=== PATIENT | female | born 1980 | race Caucasian/White ===

== ENCOUNTER 2018-06-04 20:25 | Emergency (ER) | payer BC ==
[~2018-06-04] VITALS: Ht 162.6 cm; Wt 65.8 kg
--- NOTE | 2018-06-04 21:48 | Diagnostic Imaging Report ---
EXAMINATION: CHEST 2 VIEWS INDICATION: coughing, rule out infection COMPARISON: Chest x-ray 06/30/2011 FINDINGS: PA and lateral views TUBES and LINES: None. LUNGS: Lungs are well inflated. Lungs are clear. There is no evidence of pneumonia or pulmonary edema. PLEURA: No pleural effusion or pneumothorax. HEART AND MEDIASTINUM: The cardiomediastinal silhouette is unremarkable. BONES AND SOFT TISSUES: No acute osseous lesion. Soft tissues are unremarkable. UPPER ABDOMEN: No free air under the diaphragm. IMPRESSION: No acute thoracic abnormality. Signed by: DR. Primo Min MD on 06/04/2018 9:45 PM
[2018-06-04] MEDS ORDERED: TESSALON PERLE100 MG PO (22:19)
[2018-06-04 22:29] VITALS: BP 150/89
== END 2018-06-04 22:31 | disposition home or self-care (01) ==
LOC: ER 20:25
DX: R05 Cough (principal); J20.9 Acute bronchitis, unspecified; J06.9 Acute upper respiratory infection, unspecified; J00 Acute nasopharyngitis [common cold]
CPT/HCPCS: 71046; 99283

== ENCOUNTER 2021-02-08 07:52 | Emergency (ER) | payer BC ==
[~2021-02-08] VITALS: Ht 162.6 cm; Wt 65.8 kg
[~2021-02-08 07:52] MED LIST: TESSALON PERLE100 MG PO
[2021-02-08 08:21] LABS: BASOPHILS % 0.4 % (0.0-1.0); EOSINOPHILS # (AUTO) 0.1 (0.0-0.4); EOSINOPHILS % 1.3 % (0.0-6.0); HEMATOCRIT 43.5 % (34.2-44.1); HEMOGLOBIN 14.2 g/dL (12.0-16.0); LYMPHOCYTES # (AUTO) 2.6 (1.0-3.2); LYMPHOCYTES % 27.8 % (18.0-39.1); MEAN CORPUSCULAR HEMOGLOBIN 31.2 pg (28-32); MEAN CORPUSCULAR HGB CONC 32.6 g/dL (31-35); MEAN CORPUSCULAR VOLUME 95.6 fL (81-99); MONOCYTES # (AUTO) 0.5 (0.2-0.8); NEUTROPHILS # (AUTO) 6.1 (2.1-6.9); NEUTROPHILS % 65.2 % (38.7-80.0); PLATELET COUNT 311 x10e3/uL (140-360); RED BLOOD COUNT 4.55 x10e6/uL (3.6-5.1); RED CELL DISTRIBUTION WIDTH 13.1 % (11.7-14.4)
[2021-02-08 08:35] LABS: CALCIUM 9.2 mg/dL (8.4-10.2); CREATININE, SERUM 0.82 mg/dL (0.57-1.11)
[2021-02-08] MEDS ORDERED: MOBIC15 MG PO (08:48)
[2021-02-08 08:53] VITALS: BP 136/92
== END 2021-02-08 09:02 | disposition home or self-care (01) ==
LOC: ER 08:10
DX: M53.82 Other specified dorsopathies, cervical region (principal); I10 Essential (primary) hypertension; E05.00 Thyrotoxicosis with diffuse goiter without thyrotoxic crisis or storm
CPT/HCPCS: 36415; 71045; 80048; 84484; 85025; 93005; 99284